=== PATIENT | male | born 1975 | race Caucasian/White ===

== ENCOUNTER 2019-08-12 15:57 | Emergency (ER) | payer MEDICARE, SELFPAY ==
--- NOTE | ~2019-08-12 | XR_ITS ---
EXAMINATION: XR chest 2V DATE: 08/12/2019 16:30 INDICATION: Left chest pain. TECHNIQUE: Frontal and lateral views of the chest were obtained. COMPARISON: Chest 2 views 08/13/2016 FINDINGS: The chest demonstrates clear lungs without pneumonia, pleural effusion, or pneumothorax. Th e heart size is normal. There is a chronic compression fracture in lower thoracic spine. IMPRESSION: 1. No acute cardiopulmonary disease. Reviewed, dictated and finalized at location A.
[2019-08-12 16:01] VITALS: BP 148/103; PULSE 99; RESP 21; TEMP 36.3; O2SAT 99
--- NOTE | 2019-08-12 16:07 | ECG_ITS ---
Measurements Intervals [place] Rate: 90 P: 34 ND: 160 QRS: 0 QRSD: 112 T: 29 QT: 273 QTc: 335 Interpretive Statements SINUS RHYTHM INCOMPLETE RIGHT BUNDLE BRANCH BLOCK MINIMAL Q WAVES- LATERAL LEADS BORDERLINE ST-T WAVE ABNORMALITY- ANTEROLAT/INF LEADS BASELINE ARTIFACT- I, II, AVR, AVL,A VF, V1, V4 BORDERLINE ECG Electronically Signed On 08-12-2019 19:46:27 CDT by Carlos Schmitz D.O.
--- NOTE | 2019-08-12 16:14 | ED.CHESTPAIN ---
HPI - Chest Pain General Chief Complaint: Chest Pain Stated Complaint: cp Time Seen by Provider: 08/12/19 16:10 Source: patient and RN notes reviewed Mode of arrival: ambulatory Limitations: no limitations History of Present Illness HPI narrative: Pt is a 43 y/o male who presents to the ED with c/o lt lower chest pain starting last night. He describes his pain as spasms, noting that he can physically see his lt lower chest jump up and down. Pt states that his pain intermittently becomes sharp. He denies any recent injuries or falls that may have caused his pain. Pt states that sitting up seems to aggravate his pain. He currently denies any SOB, LE edema, sweats, chills, urinary frequency, hematuria, or dysuria. Pt states that he hasn't had any recent travel or sick contacts. He notes that he has a Hx of kidney stones, but states that his pain doesn't feel similar to previous stones. MD complaint: chest pain Onset: during rest Pain location: left chest (lt lower chest) Pain radiation: none Quality: sharp and other (spasm) Relieving factors: nothing Exacerbating factors: other (sitting up) Associated symptoms: other (none) Related Data Home Medications Medication Instructions Recorded Confirmed No Home Medications 08/12/19 08/12/19 Allergies Allergy/AdvReac Type Severity Reaction Status Date / Time buprenorphine Allergy Unknown Anaphylaxis Verified 08/12/19 16:10 Review of Systems Review of Systems: All systems reviewed & are unremarkable except as noted in HPI and below Constitutional: Constitutional: Denies chills Cardiovascular: Cardiovascular: Reports chest pain (lt lower chest pain), Denies diaphoresis and Denies leg edema Respiratory: Respiratory: Denies dyspnea Genitourinary: Genitourinary: Denies hematuria, Denies dysuria and Denies urinary frequency [facility] Past Medical History Medical History History of rectal polyps HLD (hyperlipidemia) Kidney stones Surgical History Surgical History Hx of colonoscopy Hx of right knee surgery Family History Family History (Updated 12/15/15 @ 23:21 by DOCTOR UNKNOWN) Sibling Patient's sister is in good health Patient's brother is in good health Father Patient's father is in good health Mother Family history of amyotrophic lateral sclerosis Patient's mother is Social History Social History Smoking status: Never smoker Alcohol intake: current Gender identity (if verbalized by the patient): Male Exam Narrative: Exam Narrative: GENERAL: Well-appearing, morbidly obese, and in no acute distress. HEAD: Normocephalic, atraumatic. ENT: Mucous membranes moist. NECK: Supple. CHEST: Clear to auscultation. No respiratory distress. Tender to palpation anterior chest wall inferior aspect midclavicular moving to anterior axillary region along the border of the abdomen over the ribs. HEART: Regular rate and rhythm. Normal peripheral pulses. ABDOMEN: Soft, nontender, nondistendeds. EXTREMITIES: Normal range of motion. No edema. SKIN: Warm, dry, no rash. NEURO: Alert and oriented x3. Course Course Emergency Course: Patient informed of results. Toradol given for pain with mild improvement. D/c home. F?u with PCP Vital Signs Vital signs: Vital Signs Temperature 97.3 F L 08/12/19 16:01 Pulse Rate 99 08/12/19 16:01 Respiratory Rate 21 H 08/12/19 16:01 Blood Pressure 148/103 H 08/12/19 16:01 Pulse Oximetry 99 08/12/19 16:01 Temperature 97.3 F L 08/12/19 16:01 Pulse Rate 86 08/12/19 16:49 Respiratory Rate 17 08/12/19 16:49 Blood Pressure 147/103 H 08/12/19 16:49 Pulse Oximetry 99 08/12/19 16:49 MDM - Chest Pain Lab Data Result diagrams: 08/12/19 16:13 08/12/19 16:48 Labs: Lab Results 08/12/19 08/12/19 08/12/19 Range/U
[2019-08-12 16:17] VITALS: PULSE 90
[2019-08-12 16:21] VITALS: BP 147/103; PULSE 87; RESP 17; O2SAT 98
[2019-08-12 16:27] LABS: Basophils Absolute Auto 0.1 K/mm3 (0.0-0.1); Basophils Percent Auto 1.1 % (0.2-1.2); Eosinophils Absolute Auto 0.2 K/mm3 (0-0.3); Eosinophils Percent Auto 1.7 % (0-4.4); Hematocrit 45.1 % (42.0-52.0); Hemoglobin 15.2 g/dL (14.0-18.0); Immature Granulocyte Absolute 0.05 K/mm3 (0.00-0.031); Immature Granulocyte Percent A 0.5 % (0-0.5); Lymphocytes Absolute Auto 2.82 K/mm3 (0.9-3.2); Lymphocytes Percent Auto 25.5 % (18.3-44.2); Mean Corpuscular HGB Conc 33.7 g/dl (32-36); Mean Corpuscular Volume 89.1 fl (80-100); Mean Platelet Volume 9.5 fl (7.4-10.4); Monocytes Absolute Auto 0.9 K/mm3 (0.1-0.6); Monocytes Percent Auto 8.4 % (2.6-8.5); Neutrophils Percent Auto 62.8 % (45.5-73.1); Platelet Count Result 385 k/mm3 (150-375); Red Blood Count 5.06 M/mm3 (4.6-6.20); Red Cell Distribution Width 13.2 % (11.5-14.5); White Blood Count 11.1 K/mm3 (4.5-10.0)
[2019-08-12 16:47] LABS: Prothrombin Time 12.7 Seconds (11.1-14.7)
[2019-08-12] MEDS: KETOROLAC 30 MG/ML VIAL (*BKC) IV PUSH (16:47)
[2019-08-12 16:49] VITALS: BP 147/103; PULSE 86; RESP 17; O2SAT 99
[2019-08-12 17:03] LABS: Blood Urea Nitrogen 13 mg/dL (9-20); Carbon Dioxide 28 mmol/L (22-30); Chloride 101 mmol/L (98-107); Estimated CRCL calculation 133 ml/min; Estimated Glomerular Filt Rate > 60; Glucose 91 mg/dL (75-110); Potassium 4.1 mmol/L (3.4-5.0); Sodium 137 mmol/L (137-145)
[2019-08-12 17:15] LABS: Troponin I < 0.012 ng/mL (0.000-0.034)
[2019-08-12 18:25] VITALS: BP 141/122; PULSE 80; RESP 18; O2SAT 99
== END 2019-08-12 18:42 | disposition home or self-care (01) ==
PROVIDERS: Emergency Medicine; Emergency Provider Emergency Medicine; PCP Internal Medicine
DX: R07.89 Other chest pain (principal); Z87.442 Personal history of urinary calculi; E78.5 Hyperlipidemia, unspecified; Z87.19 Personal history of other diseases of the digestive system
CPT/HCPCS: 36415; 71046; 80048; 84484; 85025; 85610; 85730; 93005; 96374; 99284; J1885

== ENCOUNTER 2020-07-04 06:59 | Outpatient (CLI) | payer MEDICARE, SELFPAY ==
--- NOTE | ~2020-07-04 | MR_ITS ---
EXAMINATION: MR knee LT wo con DATE: 07/04/2020 08:06 INDICATION: Left knee pain and giving out TECHNIQUE: Magnetic resonance imaging (MRI) of the left knee was performed without intravenous contra st. Sequences included coronal PD-weighted FSE, coronal PD-weighted FS FSE, sagittal T2-weighted FSE , sagittal PD-weighted FS FSE and axial PD weighted fat saturated FSE. COMPARISON: None. FINDINGS: Medial compartment: There is a tiny focus of linear increased signal extending along the inferior articular surface of th e body of the medial meniscus on 2 of the coronal images on series 4 & 5, images 10 & 11. This aligns with subtle curvilinear band of artifactual increased signal extending across the adjacent tibia and femur. There does however appear to be a corresponding non artifactual line of increased signal haley g the body of the meniscus on axial series 3, image 17 which favors that this does affect represent a partial-thickness tear with vertical parrot beak configuration. Partial-thickness cartilage loss marylu ng the margins of the medial tibial plateau with small region of subarticular edema along the medial rim near the suspected meniscal tear. Lateral compartment: Lateral meniscus is normal. Mild chondral surface regularity along the medial side of the lateral tib ial plateau. Patellofemoral compartment: With underlying marrow edema at the superomedial aspect of the lateral patellar facet. Additional tyrone p chondral fissuring without degenerative subchondral changes at the medial side of the medial facet and along the inferior aspect of the trochlear groove. Ligaments and tendons: Anterior and posterior cruciate ligaments are normal. The medial collateral ligament and fibular junaid ateral ligament complex are normal. Patellar tendon is normal. Mild tendinopathy at the medial side o f the distal quadriceps tendon. The visualized medial and lateral hamstring tendons as well as the il iotibial band are normal. Fluid: Physiologic amount of fluid in the joint space. No loose osteochondral bodies identified. Osseous/other: Normal marrow signal aside from the previous noted small foci of subarticular edema. No fracture or p athologic marrow replacing process. IMPRESSION: 1. Likely partial thickness tear along the inferior articular surface of the medial meniscal body whi ch is seen on both axial and coronal images although on the latter aligns with a linear band of signa l artifact which decreases specificity. 2. Mild patellofemoral osteoarthritis with regions of high-grade chondromalacia and minimal osteoarth ritis with small regions of moderate grade chondromalacia in the medial and lateral compartments. 3. Mild distal quadriceps tendinopathy. Reviewed, dictated and finalized at location A. JOCKEY IMPRESSION: 1. Likely partial thickness tear along the inferior articular surface of the me dial meniscal body which is seen on both axial and coronal images although on t he latter aligns with a linear band of signal artifact which decreases specific ity. 2. 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 3. Mild distal quadriceps tendinopathy.
== END 2020-07-04 07:00 | disposition home or self-care (01) ==
PROVIDERS: PCP Internal Medicine; Visit Provider Orthopaedic Surgery
DX: S89.92XA Unspecified injury of left lower leg, initial encounter (principal); M17.12 Unilateral primary osteoarthritis, left knee; M94.262 Chondromalacia, left knee; S76.112A Strain of left quadriceps muscle, fascia and tendon, initial encounter
CPT/HCPCS: 73721

== ENCOUNTER 2020-09-27 08:20 | Outpatient (CLI) | payer MEDICARE, SELFPAY ==
[2020-09-27 08:47] LABS: Alanine Aminotransferase 18 U/L (4-50); Albumin Level 4.3 g/dL (3.5-5.1); Alkaline Phosphatase 125 U/L (38-126); Anion Gap 4 mmol/L (8-16); Aspartate Amino Transferase 23 U/L (17-59); Bilirubin,Total 0.3 mg/dL (0.2-1.3); Blood Urea Nitrogen 15 mg/dL (9-20); Calcium 9.5 mg/dL (8.4-10.2); Carbon Dioxide 29 mmol/L (22-30); Chloride 105 mmol/L (98-107); Cholesterol 266 mg/dL (0-200); Estimated Glomerular Filt Rate > 60; Glucose 107 mg/dL (75-110); HDL Direct 40 mg/dL; Hemoglobin A1C 5.5 % (<5.7); Potassium 4.5 mmol/L (3.4-5.0); Sodium 138 mmol/L (137-145); Triglycerides 161 mg/dL (<150)
[2020-09-27 08:58] LABS: LDL Cholesterol Direct 176 mg/dL
[2020-09-27 09:24] LABS: Vitamin D 25 Hydroxy 21.6 ng/mL
== END 2020-09-27 08:21 | disposition home or self-care (01) ==
PROVIDERS: PCP Internal Medicine; Visit Provider Nurse Practitioner
DX: E66.01 Morbid (severe) obesity due to excess calories (principal); E78.5 Hyperlipidemia, unspecified; E55.9 Vitamin D deficiency, unspecified
CPT/HCPCS: 36415; 80053; 80061; 82306; 83036; 84443

== ENCOUNTER 2020-10-24 07:58 | Outpatient (CLI) | payer MEDICARE, SELFPAY ==
--- NOTE | ~2020-10-24 | US_ITS ---
EXAMINATION: US art doppler w press TYRELL EXAM DATE: 10/24/2020 08:45 INDICATION: I73.9 - Peripheral vascular disease, unspecified PVD. TECHNIQUE: Segmental pressures and plethysmographic and Doppler waveforms of the brachial and lower e xtremity arteries were obtained. There is no prior study for comparison. FINDINGS: Right and left brachial artery pressures of 136 mm Hg and 119 mm Hg, respectively, are concordant (no rmal difference <= 30 mmHg). Cuffs could not be fit on patient's thighs. RIGHT LEG: The ankle-brachial index (ERVIN) is 1.13 (normal >= 0.9-1). The great toe-brachial index (TBI) is 1.18 (normal >= 0.65). The lower extremity ratios, segmental pressure gradients as follows; Proximal superficial femoral artery:- Could not obtain ( mmHg). Distal superficial femoral artery: ----- Could not obtain ( mmHg). Popliteal: 1.46 (199 mmHg). Dorsalis pedis: 1.02 (139 mmHg). Posterior tibial: 1.13 (153 mmHg). (Normal gradients <= 20-30 mmHg between adjacent levels on the same leg or the same levels on the two legs). Arterial waveforms are biphasic. LEFT LEG: The ankle-brachial index (ERVIN) is 1.20 (normal >= 0.9-1). The great toe-brachial index (TBI) is 1.23 (normal >= 0.65). The lower extremity ratios, segmental pressure gradients as follows; Proximal superficial femoral artery:- Could not obtain ( mmHg). Distal superficial femoral artery: ----- Could not obtain ( mmHg). Popliteal: 1.43 (195 mmHg). Dorsalis pedis: 1.03 (140 mmHg). Posterior tibial: 1.20 (163 mmHg). (Normal gradients <= 20-30 mmHg between adjacent levels on the same leg or the same levels on the two legs). Arterial waveforms are biphasic. IMPRESSION: 1. Right ankle-brachial index 1.13, normal. 2. Left ankle-brachial index 1.20, normal. 3. Segmental pressures as above. Reviewed, dictated and finalized at location A.
== END 2020-10-24 07:59 | disposition home or self-care (01) ==
PROVIDERS: PCP Internal Medicine; Visit Provider Internal Medicine
DX: I73.9 Peripheral vascular disease, unspecified (principal)
CPT/HCPCS: 93923

== ENCOUNTER 2020-12-13 09:48 | Outpatient (CLI) | payer MEDICARE, SELFPAY ==
--- NOTE | 2020-12-13 11:15 | NEURO_ITS ---
Impression: # Complains of numbness of lower extremities below the knees. # Normal nerve conduction study including motor and sensory nerves. # Normal needle/EMG exam. # Clinical correlation recommended. Nerve Conduction Studies Anti Sensory Summary Table Stim Site NR Peak (ms) P-T Amp (?V) Site1 Site2 Delta-P (ms) Dist (cm) Mert (m/s) Left Sup Fibular Anti Sensory (Ant Lat Mall) 14 cm 3.9 7.4 14 cm Ant Lat Mall 3.9 16.0 41 Right Sup Fibular Anti Sensory (Ant Lat Mall) 14 cm 3.4 10.7 14 cm Ant Lat Mall 3.4 16.0 47 Left Sural Anti Sensory (Lat Mall) Calf 3.7 16.5 Calf Lat Mall 3.7 16.0 43 Right Sural Anti Sensory (Lat Mall) Calf 4.2 7.1 Calf Lat Mall 4.2 18.0 43 Motor Summary Table Stim Site NR Onset (ms) O-P Amp (mV) Site1 Site2 Delta-0 (ms) Dist (cm) Mert (m/s) Left Peroneal Motor (Vastus Med) Ankle 3.9 0.8 Popit Ankle 9.1 44.0 48 Popit 13.0 0.5 Right Peroneal Motor (Vastus Med) Ankle 4.0 1.7 Popit Ankle 8.6 42.0 49 Popit 12.6 0.7 Left Tibial Motor (Abd Roland Brev) Ankle 5.0 3.0 Knee Ankle 9.5 45.0 47 Knee 14.5 4.8 Right Tibial Motor (Abd Roland Brev) Ankle 4.8 3.4 Knee Ankle 9.6 46.0 48 Knee 14.4 6.8 F Wave Studies NR F-Lat (ms) L-R F-Lat (ms) Left Peroneal (Mrkrs) (EDB) 52.98 0.94 Right Peroneal (Mrkrs) (EDB) 52.05 0.94 Left Tibial (Mrkrs) (Abd Hallucis) 53.33 0.20 Right Tibial (Mrkrs) (Abd Hallucis) 53.53 0.20 EMG Side Muscle Nerve Root Ins Act Fibs Amp Dur Recrt Comment Right AntTibialis Dp Br Fibular L4-5 Nml Nml Nml Nml Nml Right Gastroc Tibial S1-2 Nml Nml Nml Nml Nml Right Fibularis Long Sup Br Fibular L5-S1 Nml Nml Nml Nml Nml Right Flex Dig Long Tibial L5-S2 Nml Nml Nml Nml Nml Right Ext Dig Brev Dp Br Fibular L5, S1 Nml Nml Nml Nml Nml Left AntTibialis Dp Br Fibular L4-5 Nml Nml Nml Nml Nml Left Gastroc Tibial S1-2 Nml Nml Nml Nml Nml Left Fibularis Long Sup Br Fibular L5-S1 Nml Nml Nml Nml Nml Left Flex Dig Long Tibial L5-S2 Nml Nml Nml Nml Nml Left Ext Dig Brev Dp Br Fibular L5, S1 Nml Nml Nml Nml Nml Right QuadratusFem QuadFemoris L4-5, S1 Nml Nml Nml Nml Nml Left QuadratusFem QuadFemoris L4-5, S1 Nml Nml Nml Nml Nml MTDD
== END 2020-12-13 09:49 | disposition home or self-care (01) ==
LOC: ANHNEURO 09:51
PROVIDERS: PCP Internal Medicine; Visit Provider Internal Medicine
DX: G62.9 Polyneuropathy, unspecified (principal)
CPT/HCPCS: 95886; 95910

== ENCOUNTER 2020-12-15 14:13 | Outpatient (CLI) | payer MEDICARE, SELFPAY ==
[2020-12-15 14:44] LABS: Alanine Aminotransferase 20 U/L (4-50); Albumin Level 4.2 g/dL (3.5-5.1); Alkaline Phosphatase 121 U/L (38-126); Aspartate Amino Transferase 21 U/L (17-59); Bilirubin,Total 0.5 mg/dL (0.2-1.3); Cholesterol 191 mg/dL (0-200); HDL Direct 44 mg/dL; Triglycerides 329 mg/dL (<150)
[2020-12-15 14:56] LABS: LDL Cholesterol Direct 100 mg/dL
[2020-12-18 13:56] LABS: Red Blood Cell Folate 790 ng/mL RBC (>280)
== END 2020-12-15 14:14 | disposition home or self-care (01) ==
LOC: ANHLAB 14:18
PROVIDERS: PCP Internal Medicine; Visit Provider Internal Medicine
DX: R20.2 Paresthesia of skin (principal); Z51.81 Encounter for therapeutic drug level monitoring; Z79.899 Other long term (current) drug therapy; E78.5 Hyperlipidemia, unspecified
CPT/HCPCS: 36415; 80061; 80076; 82607; 82747; 84443

== ENCOUNTER 2021-03-23 08:29 | Outpatient (CLI) | payer MEDICARE, SELFPAY ==
--- NOTE | ~2021-03-23 | US_ITS ---
EXAMINATION: US venous doppler [facility] DATE: 03/23/2021 09:44 INDICATION: Left lower limb pain and swelling. Abdominal tenderness. TECHNIQUE: Grayscale ultrasound images without and with compression and Doppler ultrasound images of the left lower extremity veins were obtained. COMPARISON: None. FINDINGS: The visualized portions of left common femoral vein, profunda (deep) femoral vein, femoral vein, popl iteal vein, peroneal veins, posterior tibial veins, gastrocnemius vein and greater saphenous vein out flow are patent. IMPRESSION: 1. No deep venous thrombosis in the left lower limb. Reviewed, dictated and finalized at location A.
--- NOTE | ~2021-03-23 | XR_ITS ---
EXAMINATION: XR abdomen obstructive series DATE: 03/23/2021 09:04 INDICATION: Left upper quadrant pain TECHNIQUE: Upright and supine views of the abdomen were obtained. COMPARISON: None. FINDINGS: Changes of gastric lap band surgery are noted. The bowel gas pattern is normal. No free int raperitoneal gas is identified. There is moderate osteoarthritis of the hips. IMPRESSION: 1. Nonobstructive bowel gas pattern. Reviewed, dictated and finalized at location B.
== END 2021-03-23 08:30 | disposition home or self-care (01) ==
LOC: ANHIMG 08:37
PROVIDERS: PCP Internal Medicine; Visit Provider Nurse Practitioner
DX: R10.32 Left lower quadrant pain (principal); Z80.0 Family history of malignant neoplasm of digestive organs; Z86.010 Personal history of colon polyps; R60.9 Edema, unspecified
CPT/HCPCS: 74019; 93971

== ENCOUNTER 2021-03-27 07:47 | Outpatient (CLI) | payer MEDICARE, SELFPAY ==
--- NOTE | ~2021-03-27 | CT_ITS ---
EXAMINATION: CT abdomen pelvis w con DATE: 03/27/2021 08:30 INDICATION: Left lower quadrant pain. TECHNIQUE: Computed tomography (CT) of the abdomen and pelvis was performed with 100 cc Omnipaque 350 intravenous contrast. The dose-length product was 1710.55 mGy-cm. Automated exposure control and ite rative reconstruction technique were employed. COMPARISON: CT dated 10/31/2012. FINDINGS: Dependent atelectasis. Heart size normal. There is a laparoscopic adjustable gastric band. There is a fat-containing umbilic al hernia. Fatty infiltration of the liver. Gallbladder is present. No significant vascular abnormali ty. Lung bases are unremarkable. Nonobstructive bowel gas pattern. No free air or free fluid. No abnormal pelvic masses or fluid collections. The spleen, pancreas, adrenal glands and right kidney are unremarkable. There is a parapelvic cyst of the left kidney. No acute osseous abnormality. There is mild wedge compression deformity of T11, age -indeterminate, although new compared with prior CT. IMPRESSION: 1. No acute abdominal abnormality. Reviewed, dictated and finalized at location A. 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
== END 2021-03-27 07:48 | disposition home or self-care (01) ==
LOC: ANHIMG 07:53
PROVIDERS: PCP Internal Medicine; Visit Provider Nurse Practitioner
DX: R10.32 Left lower quadrant pain (principal); Z86.010 Personal history of colon polyps
CPT/HCPCS: 74177; Q9967

== ENCOUNTER 2021-04-06 08:41 | Outpatient (CLI) | payer MEDICARE, SELFPAY ==
[2021-04-06 09:05] LABS: Cholesterol 276 mg/dL (0-200); HDL Direct 42 mg/dL; Triglycerides 170 mg/dL (<150)
[2021-04-06 09:16] LABS: LDL Cholesterol Direct 197 mg/dL
[2021-04-06 09:48] LABS: Vitamin D 25 Hydroxy 25.1 ng/mL
== END 2021-04-06 08:42 | disposition home or self-care (01) ==
PROVIDERS: PCP Internal Medicine; Visit Provider Internal Medicine
DX: E78.5 Hyperlipidemia, unspecified (principal); E55.9 Vitamin D deficiency, unspecified
CPT/HCPCS: 36415; 80061; 82306

== ENCOUNTER 2021-06-01 13:09 | Outpatient (CLI) | payer MEDICARE, SELFPAY ==
[2021-06-01] MEDS: diphenhydrAMINE HCl CAP 25 MG CAPSULE PO (13:30)
[2021-06-01] MEDS: FAMOTIDINE 20 MG TABLET PO (13:30)
[2021-06-01] MEDS: ACETAMINOPHEN 325 MG TABLET PO (13:30)
[2021-06-01 13:41] VITALS: BP 149/93; PULSE 110; RESP 16; TEMP 36.6; O2SAT 96
[2021-06-01 13:52] VITALS: BMI 45.7
--- NOTE | 2021-06-01 13:53 | PC.NURSE ---
Patient here for IV Bamianivimab/Etesevimab infusion r/t being positive for covid and meeting high risk criteria. Education medication given. No concerns voiced. Consent signed. PO pre meds and IB Bamianivimab/Etesevimab infusion administered. SEE MAR.
[2021-06-01 14:54] VITALS: BP 138/89; PULSE 102; RESP 14; TEMP 36.4; O2SAT 94
--- NOTE | 2021-06-01 14:55 | PC.NURSE ---
Patient tolerated infusion well. NO s/sx of infusion reaction. Safe exit of hospital.
== END 2021-06-01 13:10 | disposition home or self-care (01) ==
PROVIDERS: PCP Internal Medicine; Visit Provider Internal Medicine
DX: U07.1 COVID-19 (principal); I10 Essential (primary) hypertension
CPT/HCPCS: A9270; M0245; Q0245

== ENCOUNTER 2021-06-15 08:59 | Outpatient (CLI) | payer MEDICARE, SELFPAY ==
--- NOTE | ~2021-06-15 | XR_ITS ---
XR chest 2V 06/15/2021 09:24 Indication: Covid Infection. Bloody sputum. Procedure: PA and lateral views of the chest Comparison: Comparison to multiple prior studies sequentially, with oldest reviewed study dated 02/16. Findings: Patchy bilateral airspace disease, compatible with pneumonia. No pleural effusion or pneumo thorax. No acute osseous abnormality. Impression: 1: Patchy bilateral airspace disease, compatible with pneumonia. Reviewed, dictated and finalized at location B. OSION CONTROL FITTER Impression: 1: Patchy bilateral airspace disease, compatible with pneumonia.
== END 2021-06-15 09:00 | disposition home or self-care (01) ==
LOC: ANHIMG 09:04
PROVIDERS: PCP Internal Medicine; Visit Provider Internal Medicine
DX: R04.2 Hemoptysis (principal); Z86.16 Personal history of COVID-19; R91.8 Other nonspecific abnormal finding of lung field
CPT/HCPCS: 71046

== ENCOUNTER 2021-07-11 18:52 | Emergency (ER) | payer MEDICARE, SELFPAY ==
[2021-07-11 18:56] VITALS: BP 143/96; PULSE 94; RESP 18; TEMP 36.6; O2SAT 97
--- NOTE | 2021-07-11 19:18 | ED.SKABFB ---
HPI - Skin/Abscess/Foreign Bdy General Chief complaint: Skin/Abscess/Foreign Body Stated complaint: food bolus Time Seen by Provider: 07/11/21 19:06 Source: patient History of Present Illness HPI narrative: Patient presents with difficulty swallowing. Patient reports he took his evening pills approximately 30 minutes after he had a metallic taste in his mouth and had a difficult time swallowing he attempted to drink water but had to spit it out he was able to breathe and talk during this episode but because he could not swallow he came to the ER for evaluation. Patient ports he thinks he took the wrong medication this evening he is normally supposed to take vitamin D and ibuprofen but thinks maybe he took a benzo medication. On arrival to the ER reports complete resolution of his symptoms notably swelling noted breathing not any rash nausea vomiting or diarrhea during this episode. Reports he had a similar episode many years ago when he accidentally bit down on a pill that he was taking prior to swallowing. Related Data Home Medications Medication Instructions Recorded Confirmed cholecalciferol (vitamin D3) 50 15,000 unit PO DAILY tablet 07/10/21 07/10/21 mcg (2,000 unit) tablet rosuvastatin mg 07/11/21 07/11/21 Allergies Allergy/AdvReac Type Severity Reaction Status Date / Time buprenorphine Allergy Unknown Anaphylaxis Verified 07/11/21 19:03 Review of Systems Review of Systems: CONSTITUTIONAL: Denies fever, chills, or sweats. EYES: Denies visual changes, redness, or discharge. ENT: Denies rhinorrhea, congestion, sore throat, or otalgia. CARDIOVASCULAR: Denies chest pain, palpitations, or edema. RESPIRATORY: Denies cough or dyspnea. GASTROINTESTINAL: Denies abdominal pain, nausea, vomiting, or diarrhea. GENITOURINARY: Denies dysuria or hematuria. SKIN: Denies rash or itching. MUSCULOSKELETAL: Denies back pain, joint pain, or myalgia. NEUROLOGIC: Denies headache, numbness, dizziness, or weakness. PSYCHIATRIC: Denies anxiety or depression. All systems reviewed & are unremarkable except as noted in HPI and below PMFSH Past Medical History Medical History COVID-19 History of rectal polyps HLD (hyperlipidemia) Kidney stones Surgical History Surgical History Hx of colonoscopy Hx of right knee surgery Family History Family History Sibling Patient's sister is in good health Patient's brother is in good health Father Patient's father is in good health Mother Family history of amyotrophic lateral sclerosis Patient's mother is Social History Social History Smoking status: Never smoker Second hand tobacco smoke exposure: No Alcohol intake: current Alcohol use details: rarely Substance use: never Substance use type: does not use Gender identity (if verbalized by the patient): Male Exam Narrative: GENERAL: Well-appearing, well-nourished, and in no acute distress. HEAD: Normocephalic, atraumatic. EYES: PERRLA and EOMI. ENT: Nares clear, no rhinorrhea or epistaxis. Mucous membranes moist. NECK: Supple. No masses. No JVD CHEST: Clear to auscultation. No respiratory distress. No wheezes rales or rhonchi HEART: Regular rate and rhythm. No murmur heard. Normal peripheral pulses. EXTREMITIES: Normal range of motion. No edema. SKIN: Warm, dry, no rash. NEURO: No focal deficits. Alert and oriented x3. PSYCH: Normal mood and affect. Course Vital Signs Vital signs: Vital Signs Temperature 36.6 C 07/11/21 18:56 Pulse Rate 94 07/11/21 18:56 Respiratory Rate 18 07/11/21 18:56 Blood Pressure 143/96 H 07/11/21 18:56 Pulse Oximetry 97 07/11/21 18:56 Temperature 36.6 C 07/11/21 18:56 Pulse Rate 89 07/11/21 19:30 Respiratory Rate
[2021-07-11 19:30] VITALS: BP 125/83; PULSE 89; RESP 14; O2SAT 99
== END 2021-07-11 19:30 | disposition home or self-care (01) ==
LOC: ANHED 19:25
PROVIDERS: Emergency Provider Emergency Medicine; PCP Internal Medicine
DX: K20.80 Other esophagitis without bleeding (principal); E78.5 Hyperlipidemia, unspecified; Z86.16 Personal history of COVID-19; Z87.19 Personal history of other diseases of the digestive system; Z87.442 Personal history of urinary calculi
CPT/HCPCS: 99281

== ENCOUNTER 2021-08-20 02:18 | Day surgery (SDC) | payer MEDICARE, SELFPAY ==
[2021-08-07 14:02] VITALS: BMI 45.7
[2021-08-20 09:41] VITALS: BP 135/91; PULSE 91; RESP 17; TEMP 36.1; O2SAT 97; BMI 44.9
[2021-08-20] MEDS: LACTATED RINGERS 1,000 ML 150 ML IV CONT (09:51)
--- NOTE | 2021-08-20 09:52 | WPDGICN ---
Assessment and Plan Assessment and plan (1) Colon cancer screening: Code(s): Z12.11 - Encounter for screening for malignant neoplasm of colon Status: Acute Assessment and Plan: Colonoscopy with possible biopsy or polypectomy or cautery or injection of substances. (2) Family history of colon cancer: Code(s): Z80.0 - Family history of malignant neoplasm of digestive organs Status: Acute GI Consult Note Consult date/time: 08/20/21 09:52 HPI: Eusebio Black is a 45 year old male referred for colon cancer screening. He has a family history of colon cancer. His brother had colon cancer at the age of 57. He has had no blood in his stools or other symptoms. He does from time to time get a sore feeling in his left lower quadrant with straining or sometimes after meal. He is not sure if he has hernia. Review of Systems Review of Systems: All systems reviewed & are unremarkable except as noted in HPI and below PMFSH Past Medical History Medical History COVID-19 History of rectal polyps HLD (hyperlipidemia) Kidney stones Surgical History Surgical History Hx of colonoscopy Hx of right knee surgery Family History Family History Sibling Patient's sister is in good health Patient's brother is in good health Father Patient's father is in good health Mother Family history of amyotrophic lateral sclerosis Patient's mother is Social History Social History Smoking status: Never smoker Second hand tobacco smoke exposure: No Alcohol intake: current Alcohol use details: rarely Substance use: never Substance use type: does not use Living arrangements: with family Gender identity (if verbalized by the patient): Male Spiritual care concerns: No Meds Home Medications and Allergies Home Medications Medication Instructions Recorded Confirmed Type cholecalciferol (vitamin D3) 50 15,000 unit PO DAILY tablet 07/10/21 08/20/21 History mcg (2,000 unit) tablet rosuvastatin 10 mg PO DAILY 07/11/21 08/20/21 History Allergies Allergy/AdvReac Type Severity Reaction Status Date / Time buprenorphine Allergy Unknown Anaphylaxis Verified 08/20/21 09:40 Vital Signs Vital Signs - 24 hr 08/20/21 09:41 Temperature 36.1 C L Pulse Rate 91 Respiratory Rate 17 Blood Pressure 135/91 H Pulse Oximetry 97 Exam Const: General: alert Orientation/consciousness: patient oriented x3 Resp: Auscultation: clear to auscultation bilaterally Cardio: Rhythm: regular rhythm GI: GI Palp: Yes Soft to palpation and No Tenderness to palpation present (GI) Neuro: General: patient oriented x3
--- NOTE | 2021-08-20 10:19 | P.PNAN_ITS ---
Anes - Initial Pre Proc Eval Procedure: Operation Date: 08/20/21 11:00 Proposed Procedures p Screening Colonoscopy - Aleksander Yañez MD Date/Time: 08/20/21 10:19 Surgeon: Aleksander Yañez MD Pre Op Diagnosis: family hx of colon ca Patient Data Age: 45 Gender: M Height: 1.91 m Weight: 163 kg Last Vital Signs Temp 96.9 F L 08/20/21 09:41 Pulse 91 08/20/21 09:41 Resp 17 08/20/21 09:41 BP 135/91 H 08/20/21 09:41 Pulse Ox 97 08/20/21 09:41 Allergies Allergy/AdvReac Type Severity Reaction Status Date / Time buprenorphine Allergy Unknown Anaphylaxis Verified 08/20/21 09:40 Home Medications Medication Instructions Recorded Confirmed Type cholecalciferol (vitamin D3) 50 15,000 unit PO DAILY tablet 07/10/21 08/20/21 History mcg (2,000 unit) tablet rosuvastatin 10 mg PO DAILY 07/11/21 08/20/21 History Patient hx anesthesia problems: none Family hx anesthesia problems: none Results Review: All pre-operative results and documents have been reviewed as part of the pre-operative evaluation. [facility] Past Medical History Medical History COVID-19 History of rectal polyps HLD (hyperlipidemia) Kidney stones Surgical History Surgical History Hx of colonoscopy Hx of right knee surgery Family History Family History Sibling Patient's sister is in good health Patient's brother is in good health Father Patient's father is in good health Mother Family history of amyotrophic lateral sclerosis Patient's mother is Social History Social History Smoking status: Never smoker Second hand tobacco smoke exposure: No Alcohol intake: current Alcohol use details: rarely Substance use: never Substance use type: does not use Living arrangements: with family Gender identity (if verbalized by the patient): Male Spiritual care concerns: No Anes - Eval Final PreProcedure Day of Procedure 08/20/21 10:19 Patient weight: morbidly obese Heart: regular rate and rhythm Lungs: clear to auscultation Airway: Mallampati scale class III Neurological: alert and oriented Last oral intake: >/= 8 hours ASA classification: III Emergent: no Anesthetic plan: proceed Anesthesia type and monitoring: general GIVS and standard monitoring Results Review: All pre-operative results and documents have been reviewed as part of the pre-operative evaluation. Informed Consent: The patient's anesthetic plan and its attendant risks and benefits were discussed with the patient/family/POA. Questions were solicited and answers provided to the satisfaction of the patient/family/POA.
[2021-08-20 10:48] VITALS: BP 104/74; PULSE 90; RESP 17; O2SAT 98
[2021-08-20 10:58] VITALS: BP 112/75; PULSE 78; RESP 17; O2SAT 99
[2021-08-20 11:05] VITALS: BP 127/76; PULSE 74; RESP 17; O2SAT 100
== END 2021-08-20 11:20 | disposition home or self-care (01) ==
PROVIDERS: PCP Internal Medicine; Visit Provider Internal Medicine Gastroenterology
PROC: 0DJD8ZZ Inspection of Lower Intestinal Tract, Via Natural or Artificial Opening Endoscopic (ICD-10-PCS; CPT 45378; principal; 2021-08-20 11:00)
DX: Z12.11 Encounter for screening for malignant neoplasm of colon (principal); K62.1 Rectal polyp; E78.5 Hyperlipidemia, unspecified; E66.01 Morbid (severe) obesity due to excess calories; Z68.41 Body mass index [BMI] 40.0-44.9, adult
CPT/HCPCS: 45380; 88305; J2704; J7120

== ENCOUNTER 2021-10-23 14:03 | Outpatient (CLI) | payer MEDICARE, SELFPAY ==
--- NOTE | ~2021-10-23 | CT_ITS ---
EXAMINATION: CT abdomen wo con DATE: 10/23/2021 14:35 INDICATION: Left-sided abdominal pain TECHNIQUE: Computed tomography (CT) of the abdomen and pelvis was performed without intravenous contr ast. The dose-length product was 1261.73 mGy-cm. Automated exposure control and iterative reconstruct ion technique were employed. COMPARISON: CT dated 03/27/2021. FINDINGS: Lung bases are unremarkable. Heart size normal. No significant pleural or pericardial effus ion. There is a laparoscopic adjustable gastric band. No significant vascular abnormality. No lymphad enopathy. Fatty infiltration of the liver. Left parapelvic cyst unchanged. The spleen, pancreas, adre nal glands and right kidney are unremarkable. No renal stones or hydronephrosis. Gallbladder is prese nt. Bowel pattern is nonobstructive. Fat-containing umbilical hernia. No lymphadenopathy. Gallbladder is present. Chronic anterior wedge compression fracture of T11 unchanged. Moderate lumbar spondylosi s. Colonic diverticulosis without evidence for diverticulitis. No free air. IMPRESSION: 1. No acute abnormality. No findings to account for patient's symptoms. Reviewed, dictated and finalized at location B.
== END 2021-10-23 14:04 | disposition home or self-care (01) ==
PROVIDERS: PCP Internal Medicine; Visit Provider Internal Medicine
DX: R10.9 Unspecified abdominal pain (principal)
CPT/HCPCS: 74150

== ENCOUNTER 2022-04-19 08:31 | Outpatient (CLI) | payer MEDICARE, SELFPAY ==
[2022-04-19 08:59] LABS: Cholesterol 297 mg/dL (0-200); HDL Direct 40 mg/dL; Triglycerides 228 mg/dL (<150)
[2022-04-19 09:09] LABS: LDL Cholesterol Direct 187 mg/dL
[2022-04-19 09:44] LABS: Vitamin D 25 Hydroxy 25.6 ng/mL
== END 2022-04-19 08:32 | disposition home or self-care (01) ==
LOC: ANHLAB 08:33
PROVIDERS: PCP Internal Medicine; Visit Provider Internal Medicine
DX: E78.5 Hyperlipidemia, unspecified (principal); E55.9 Vitamin D deficiency, unspecified
CPT/HCPCS: 36415; 80061; 82306

== ENCOUNTER 2022-09-01 12:36 | Outpatient (CLI) | payer MEDICARE, SELFPAY ==
--- NOTE | ~2022-09-01 | MR_ITS ---
MRI of the left knee Clinical history: Internal arrangement Technique: Coronal proton density and proton density-weighted images, sagittal proton-density and T2 fat-sat images, and axial proton-density fat-saturated images were acquired. COMPARISON: 07/04/2020 Findings: Anterior and posterior cruciate ligaments are intact. Medial collateral ligament and the la teral collateral ligament complex are intact. Popliteus tendon is intact. There is complex tearing of the body segment of the medial meniscus, with horizontal tear extending i nto the posterior horn. No lateral meniscal tear identified. There is mild chondral thinning towards the medial joint line. Lateral compartment articular cartilag e is well preserved. 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 Femoral trochlear cartilage is intact. Tiny tricompartmental osteophyt es are present. Extensor mechanism is intact. Minimal joint effusion present. No Armstrong's cyst. Impression: Complex tearing of the body segment of the medial meniscus, worsened/progressed since prior exam, wit h probable extension of horizontal tear into the posterior horn. Mild degenerative change, as above. Findings are probably most severe along the patella, as detailed above. Reviewed, dictated and finalized at location M. Impression: Complex tearing of the body segment of the medial meniscus, worsened/progressed since prior exam, with probable extension of horizontal tear into the posterio r horn. Mild degenerative change, as above. Findings are probably most severe along the patella, as detailed above.
== END 2022-09-01 12:37 | disposition home or self-care (01) ==
PROVIDERS: PCP Internal Medicine; Visit Provider Orthopaedic Surgery
DX: M25.562 Pain in left knee (principal); S83.232A Complex tear of medial meniscus, current injury, left knee, initial encounter
CPT/HCPCS: 73721

== ENCOUNTER 2023-09-26 09:21 | Outpatient (CLI) | payer MEDICARE, SELFPAY ==
[2023-09-26 10:03] LABS: Basophils Absolute Auto 0.1 K/mm3 (0.0-0.1); Basophils Percent Auto 1.3 % (0.2-1.2); Eosinophils Absolute Auto 0.2 K/mm3 (0-0.3); Eosinophils Percent Auto 2.5 % (0-4.4); Hemoglobin 15.1 g/dL (14.0-18.0); Immature Granulocyte Absolute 0.03 K/mm3 (0.00-0.031); Immature Granulocyte Percent A 0.4 % (0-0.5); Lymphocytes Absolute Auto 2.17 K/mm3 (0.9-3.2); Lymphocytes Percent Auto 27.6 % (18.3-44.2); Mean Corpuscular HGB Conc 33.6 g/dl (32-36); Mean Corpuscular Hemoglobin 30.3 pg (26-34); Mean Corpuscular Volume 90.2 fl (80-100); Mean Platelet Volume 9.6 fl (7.4-10.4); Monocytes Absolute Auto 0.6 K/mm3 (0.1-0.6); Monocytes Percent Auto 7.3 % (2.6-8.5); Neutrophils Absolute Auto 4.8 K/mm3 (1.3-6.7); Neutrophils Percent Auto 60.9 % (45.5-73.1); Platelet Count Result 373 k/mm3 (150-375); Red Blood Count 4.99 M/mm3 (4.6-6.20); Red Cell Distribution Width 12.9 % (11.5-14.5); White Blood Count 7.9 K/mm3 (4.5-10.0)
[2023-09-26 10:17] LABS: Alanine Aminotransferase 24 U/L (6-50); Albumin Level 4.6 g/dL (3.5-5.1); Alkaline Phosphatase 109 U/L (38-126); Anion Gap 10 mmol/L (4-12); Aspartate Amino Transferase 23 U/L (17-59); Bilirubin,Total 0.6 mg/dL (0.2-1.3); Blood Urea Nitrogen 18 mg/dL (9-20); Calcium 9.5 mg/dL (8.4-10.2); Carbon Dioxide 24 mmol/L (22-30); Chloride 107 mmol/L (98-107); Cholesterol 269 mg/dL (0-200); Estimated Glomerular Filt Rate > 60; Glucose 105 mg/dL (65-110); HDL Direct 44 mg/dL; Potassium 4.3 mmol/L (3.4-5.0); Sodium 141 mmol/L (137-145); Triglycerides 149 mg/dL (<150)
[2023-09-26 10:27] LABS: LDL Cholesterol Direct 176 mg/dL
[2023-09-26 10:51] LABS: Vitamin D 25 Hydroxy 24.9 ng/mL
== END 2023-09-26 09:22 | disposition home or self-care (01) ==
PROVIDERS: PCP Internal Medicine; Visit Provider Internal Medicine
DX: E78.5 Hyperlipidemia, unspecified (principal); E55.9 Vitamin D deficiency, unspecified; E66.01 Morbid (severe) obesity due to excess calories; I10 Essential (primary) hypertension; Z79.899 Other long term (current) drug therapy; Z12.5 Encounter for screening for malignant neoplasm of prostate
CPT/HCPCS: 36415; 80053; 80061; 82306; 84443; 85025

== ENCOUNTER 2024-01-23 09:19 | Outpatient (CLI) | payer MEDICARE, SELFPAY ==
--- NOTE | ~2024-01-23 | XR_ITS ---
Clinical Indication: Cough PA and lateral views of the chest: Comparison: None Findings: The lungs are clear, without evidence of focal consolidation or pleural effusion. Cardiome diastinal silhouette is within normal limits. Bones and soft tissues are unremarkable. Impression: Normal chest. Reviewed, dictated and finalized at location . Impression: Normal chest.
== END 2024-01-23 09:20 | disposition home or self-care (01) ==
LOC: ANHIMG 09:21
PROVIDERS: PCP Internal Medicine; Visit Provider Nurse Practitioner
DX: R05.9 Cough, unspecified (principal)
CPT/HCPCS: 71046